=== PATIENT | female | born 1965 | race Caucasian/White ===

== ENCOUNTER → 2020-04-11 | Outpatient (CLI) | payer BC ==
[2020-04-12 13:13] LABS: Adenovirus F 40/41 Not Detected (NOT DETECT); Astrovirus Not Detected (NOT DETECT); Campylobacter Sp Not Detected (NOT DETECT); Cryptosporidium Not Detected (NOT DETECT); Cyclospora Cayetanensis Not Detected (NOT DETECT); E. Coli O157 Not Detected (NOT DETECT); Entamoeba Histolytica Not Detected (NOT DETECT); Enteroaggregative E. coli-EAEC Not Detected (NOT DETECT); Enteropathogenic E. coli-EPEC Not Detected (NOT DETECT); Enterotoxigenic E. coli-ETEC Not Detected (NOT DETECT); Giardia Lamblia Not Detected (NOT DETECT); Norovirus GI/GII Not Detected (NOT DETECT); Plesiomonas Shigelloides Not Detected (NOT DETECT); Rotavirus A Not Detected (NOT DETECT); Salmonella Sp Not Detected (NOT DETECT); Sapovirus Not Detected (NOT DETECT); Shiga Toxin-prod E. coli-STEC Not Detected (NOT DETECT); Shigella/Enteroin E. coli-EIEC Not Detected (NOT DETECT); Vibrio Cholerae Not Detected (NOT DETECT); Vibrio Sp Not Detected (NOT DETECT); Yersinia Enterocolitica Not Detected (NOT DETECT)
== END ==
LOC: LAB SHORT 06:00 → LAB 06:00
PROVIDERS: Nurse Practitioner Family
DX: R19.7 Diarrhea, unspecified (principal)
CPT/HCPCS: 0097U

== ENCOUNTER → 2020-04-11 | Outpatient (CLI) | payer BC ==
[2020-04-12 14:04] LABS: Stool Occult Bld Immuno 1 Negative (NEGATIVE)
== END ==
LOC: LAB SHORT 06:00 → LAB 06:00 → LAB FUT 04-12 08:05
PROVIDERS: Nurse Practitioner Family
DX: R19.7 Diarrhea, unspecified (principal)
CPT/HCPCS: 82274

== ENCOUNTER 2022-03-20 06:26 | Day surgery (SDC) | payer OTHER ==
[~2022-03-20] VITALS: Ht 177.8 cm; Wt 87.5 kg
[2022-03-20] MEDS ORDERED: OMEP20ER (07:00)
--- NOTE | 2022-03-20 09:29 | NUR ---
03/20/22 0929 Sushila Chauhan LATE ENTRY FOR TODAY DURING PROCEDURE EGD TURNED INTO PUSH ENTEROSCOPY
== END 2022-03-20 09:40 | disposition home or self-care (01) ==
LOC: ORSCSDS 06:26
PROVIDERS: Internal Medicine Gastroenterology
PROC: 0DBE8ZX Excision of Large Intestine, Via Natural or Artificial Opening Endoscopic, Diagnostic (ICD-10-PCS; principal; 2022-03-20 08:00)
PROC: 0DB98ZX Excision of Duodenum, Via Natural or Artificial Opening Endoscopic, Diagnostic (ICD-10-PCS; principal; 2022-03-20 08:00)
PROC: 0DBA8ZX Excision of Jejunum, Via Natural or Artificial Opening Endoscopic, Diagnostic (ICD-10-PCS; principal; 2022-03-20 08:00)
PROC: 0D758ZZ Dilation of Esophagus, Via Natural or Artificial Opening Endoscopic (ICD-10-PCS; principal; 2022-03-20 08:00)
PROC: 0DB78ZX Excision of Stomach, Pylorus, Via Natural or Artificial Opening Endoscopic, Diagnostic (ICD-10-PCS; principal; 2022-03-20 08:00)
DX: K92.1 Melena (principal); R10.30 Lower abdominal pain, unspecified; R10.13 Epigastric pain; K29.70 Gastritis, unspecified, without bleeding; K29.80 Duodenitis without bleeding; K22.2 Esophageal obstruction; K64.4 Residual hemorrhoidal skin tags; Z79.899 Other long term (current) drug therapy
CPT/HCPCS: 88305; 88342; C1726; J0330; J0461; J2405; J2704; J7120

== ENCOUNTER 2022-04-16 22:11 | Inpatient (IN) | payer OTHER ==
[~2022-04-16] VITALS: Ht 177.8 cm; Wt 88.5 kg
[~2022-04-16 22:11] MED LIST: OMEP20ER
[2022-04-16 23:15] LABS: BASOPHILS ABSOLUTE AUTO 0.04 K/mm3 (0.00-0.23); BASOPHILS PERCENT AUTO 0 % (0-2); EOSINOPHILS ABSOLUTE AUTO 0.06 K/mm3 (0.00-0.68); EOSINOPHILS PERCENT AUTO 0 % (0-6); Hematocrit 38.1 % (33.0-51.0); Hemoglobin 13.4 g/dL (11.5-16.0); IMMATURE GRAN ABSOLUTE AUTO 0.07 K/mm3 (0.00-0.10); IMMATURE GRAN PERCENT AUTO 1 % (0-1); LYMPHOCYTES ABSOLUTE AUTO 1.79 K/mm3 (0.84-5.20); LYMPHOCYTES PERCENT AUTO 12 % (21-46); MONOCYTES ABSOLUTE AUTO 0.63 K/mm3 (0.16-1.47); MONOCYTES PERCENT AUTO 4 % (4-13); Mean Corpuscular HGB 32.2 pg (26.0-34.0); Mean Corpuscular HGB Conc 35.2 g/dL (31.5-36.5); Mean Corpuscular Volume 92 fL (80-100); Mean Platelet Volume 10.2 fL (9.1-12.4); NEUTROPHILS ABSOLUTE AUTO 12.79 K/mm3 (1.96-9.15); NEUTROPHILS PERCENT AUTO 83 % (41-73); Platelet Count 247 K/mm3 (150-400); RDW Coefficient Variation 11.9 % (11.7-14.2); RDW Standard Deviation 40.2 fL (35.1-46.3); Red Blood Cell Count 4.16 M/mm3 (3.80-5.20); White Blood Cell Count 15.38 K/mm3 (4.00-11.30)
[2022-04-16 23:27] LABS: Albumin, Blood 3.7 g/dL (3.4-5.0); Bilirubin, Total 0.7 mg/dL (0.1-1.0); Bun/Creatinine Ratio 10.4 (12.0-20.0); Calcium, Blood 9.5 mg/dL (8.5-10.1); Creatinine, Blood 0.87 mg/dL (0.40-1.00); Globulin, Blood 3.8 g/dL (2.2-4.0); Potassium, Blood 3.9 mmol/L (3.5-5.5); Total Protein, Blood 7.5 g/dL (6.4-8.2)
[2022-04-17 00:46] LABS: Influenza A, PCR NEGATIVE (NEGATIVE); Influenza B, PCR NEGATIVE (NEGATIVE); Resp Syncytial Virus, PCR NEGATIVE (NEGATIVE); SARS-Cov-2 (COVID-19) PCR, MMC NEGATIVE (NEGATIVE)
[2022-04-17 00:56] LABS: Source, Urine Clean Catch
[2022-04-17 01:02] LABS: Bilirubin, Urine Neg (Neg); Blood, Urine Neg (Neg); Glucose Qualitative, Urine Neg (Neg); Ketones, Urine Neg (Neg); Leukocyte Esterase, Urine Neg (Neg); Nitrite, Urine Neg (Neg); Protein, Urine Neg (Neg); Urobilinogen, Urine NORM (Normal)
[2022-04-17 01:31] LABS: Appearance, Urine Clear (Clear); Color, Urine Yellow (P-Yellow)
--- NOTE | 2022-04-17 11:01 | NUR ---
PT TO DAY SURGERY
--- NOTE | 2022-04-17 17:48 | NUR ---
SHIFT SUMMARY PT S/P LAP APPY. 3 LAP SITES WITH STERI STRIPS TO ABD, CDI. PT DENIES PAIN OR NAUSEA AFTER SURGERY. TOLERATING SOME PO INTAKE BUT HAS BEEN VERY TIRED. PT HAS YET TO GET UP AND VOID. VSS.
--- NOTE | 2022-04-18 06:43 | NUR ---
POD 1 S/P LAP APPY. PT VSS T/O NIGHT. PAIN MGD W/TORADOL W/REP RELIEF. PT MALI PO, DENIED N/V, REP NO FLATUS YET. INCISIONS CDI, STERI STRIPS CDI. PT VOIDING URINE W/O DIFFICULTY. PT IVF AND ABX CONT PER ORDERS.
[2022-04-18] MEDS ORDERED: OXYC5 PO (10:11)
[2022-04-18] MEDS ORDERED: AMOCLA875 PO (10:12)
--- NOTE | 2022-04-18 10:37 | NUR ---
Pt. is awake in bed and welcomes my visit. Pt. is pleasant and anticipating discharge this morning. Pt. verbalizes no significant spiritual concerns, but verbalizes gratitude for the spiritual care visit.
--- NOTE | 2022-04-18 11:25 | NUR ---
DISCHARGE PT POD #1 FOR LAP APPY. 3 LAP SITES WITH STERI STRIPS CDI. PT C/O SOME GAS PAIN AND IS WALKING IN ORDER TO PASS GAS. PATIENT DID NOT WANT TO TAKE OXYCODONE PRESCRIPTION SINCE SHE IS ALLERGIC. OFFERED TO TRY TO FIND A DIFFERENT DRUG FOR PAIN RELIEF AND PT STATED THAT SHE PREFERS TO TAKE TYLENOL. OXYCODONE PRESCRIPTION SHREDDED. PT DC'D HOME WITH FAMILY.
== END 2022-04-18 11:39 | disposition home or self-care (01) | DRG 343 ==
LOC: ER 22:11 → SURS 04-17 02:36 → ERHOLD 04-17 02:36 → SURS 04-17 08:40
PROVIDERS: Student in an Organized Health Care Education/Training Program; Surgery; ADMIT Surgery
PROC: 0DTJ4ZZ Resection of Appendix, Percutaneous Endoscopic Approach (ICD-10-PCS; principal; 2022-04-17 11:30)
DX: K35.80 Unspecified acute appendicitis (principal); K21.9 Gastro-esophageal reflux disease without esophagitis; Z90.49 Acquired absence of other specified parts of digestive tract; Z98.890 Other specified postprocedural states; Z90.710 Acquired absence of both cervix and uterus; Z90.722 Acquired absence of ovaries, bilateral; Z88.5 Allergy status to narcotic agent; Z88.6 Allergy status to analgesic agent; Z88.8 Allergy status to other drugs, medicaments and biological substances; Z79.899 Other long term (current) drug therapy; G43.909 Migraine, unspecified, not intractable, without status migrainosus
CPT/HCPCS: 0241U; 36415; 74177; 80053; 81003; 83605; 83690; 85025; 88304; 93005; 93010; 96365-59; 96375; 96376; 99285-25; J0295; J0696; J1100; J1170; J1885; J2250; J2370; J2405; J2704; J2795; J3010; J7030; J7120; Q9967

== ENCOUNTER 2024-11-30 12:47 | Emergency (ER) | payer OTHER ==
[~2024-11-30] VITALS: Ht 177.8 cm; Wt 88.5 kg
[~2024-11-30 12:47] MED LIST changes: +AMOCLA875 PO; +OXYC5 PO
[2024-11-30 13:29] VITALS: BP 146/89
[2024-11-30 14:32] LABS: Albumin, Blood 4.1 g/dL (3.4-5.0); Bilirubin, Total 0.4 mg/dL (0.1-1.0); Bun/Creatinine Ratio 16.7 (12.0-20.0); Calcium, Blood 9.1 mg/dL (8.5-10.1); Creatinine, Blood 0.84 mg/dL (0.40-1.00); Globulin, Blood 4.1 g/dL (2.2-4.0); Potassium, Blood 4.5 mmol/L (3.5-5.5); Total Protein, Blood 8.2 g/dL (6.4-8.2)
[2024-11-30 15:09] LABS: BASOPHILS ABSOLUTE AUTO 0.07 K/mm3 (0.00-0.23); BASOPHILS PERCENT AUTO 1 % (0-2); EOSINOPHILS ABSOLUTE AUTO 0.12 K/mm3 (0.00-0.68); EOSINOPHILS PERCENT AUTO 2 % (0-6); Hematocrit 32.3 % (33.0-51.0); Hemoglobin 9.9 g/dL (11.5-16.0); IMMATURE GRAN ABSOLUTE AUTO 0.02 K/mm3 (0.00-0.10); IMMATURE GRAN PERCENT AUTO 0 % (0-1); LYMPHOCYTES ABSOLUTE AUTO 1.79 K/mm3 (0.84-5.20); LYMPHOCYTES PERCENT AUTO 23 % (21-46); MONOCYTES ABSOLUTE AUTO 0.47 K/mm3 (0.16-1.47); MONOCYTES PERCENT AUTO 6 % (4-13); Mean Corpuscular HGB 25.1 pg (26.0-34.0); Mean Corpuscular HGB Conc 30.7 g/dL (31.5-36.5); Mean Corpuscular Volume 82 fL (80-100); Mean Platelet Volume 9.4 fL (9.1-12.4); NEUTROPHILS ABSOLUTE AUTO 5.42 K/mm3 (1.96-9.15); NEUTROPHILS PERCENT AUTO 69 % (41-73); Platelet Count 318 K/mm3 (150-400); RDW Coefficient Variation 13.3 % (11.7-14.2); RDW Standard Deviation 39.8 fL (35.1-46.3); Red Blood Cell Count 3.94 M/mm3 (3.80-5.20); White Blood Cell Count 7.89 K/mm3 (4.00-11.30)
[2024-11-30] MEDS ORDERED: Ketorolac Tromethamine 15mg Vial IV ONE (15:15)
== END 2024-11-30 17:40 | disposition home or self-care (01) ==
LOC: ER 12:47
PROVIDERS: Physician Assistant
DX: R10.32 Left lower quadrant pain (principal); K43.9 Ventral hernia without obstruction or gangrene; Z88.5 Allergy status to narcotic agent
CPT/HCPCS: 74177; 80053; 83605; 85025; 96374-59; 99284-25; J1885; Q9967

== ENCOUNTER 2025-01-10 12:26 | Day surgery (SDC) | payer OTHER ==
[~2025-01-10] VITALS: Ht 177.8 cm; Wt 86.9 kg
[2025-01-10] VITALS (11 sets, daily range): BP systolic 138–156; BP diastolic 68–89
[~2025-01-10 12:26] MED LIST changes: +DESVENLAFAXINE100 M3 PO; +MAGNESIUM OXID500 M1 PO; +OMEPRAZOLE MAGN20 MG PO
[2025-01-10] MEDS ORDERED: CeFAZolin Sodium 2,000 MG in NS 100 ML IV SCH (13:50)
[2025-01-10] MEDS ORDERED: Bupivacaine 0.5% HCl 5 MG/ML 30MLVIAL ONE (13:51)
[2025-01-10] MEDS ORDERED: CeFAZolin Sodium 2,000 MG VIAL ONE (14:02)
--- NOTE | 2025-01-10 14:19 | NUR ---
Ambulatory in Day Surgery. History, Chart, Medications and Allergies reviewed before start of procedure. Lungs clear T/O to Auscultation. Patient confirms NPO status and agrees with scheduled surgery. Pre-Op teaching done. Pt verbalizes understanding. Patient States Post-Procedure ride home has been arranged. PT BELONGINGS PLACED UNDERNEATH GURNEY FOR SAFEKEEPING. PT GLASSES TAKEN TO PACU FOR SAFEKEEPING.
[2025-01-10] MEDS ORDERED: FentaNYL Citrate 50 MCG/ML 2 ML Injection ONE (14:23)
[2025-01-10] MEDS ORDERED: HYDROmorphone HCl/Pf 1MG SYR ONE ×2 (14:23→18:20)
[2025-01-10] MEDS ORDERED: Midazolam HCl 1MG / ML 2ML Vial ONE (14:24)
[2025-01-10] MEDS ORDERED: Dexamethasone Sod Phos 10 MG/ML 1ML VIAL ONE (14:41)
[2025-01-10] MEDS ORDERED: Metoclopramide HCl 5MG / ML 2ML Vial ONE (14:41)
[2025-01-10] MEDS ORDERED: Rocuronium Bromide 10 MG/ML 5ML Injection IV ONE (14:41)
[2025-01-10] MEDS ORDERED: Ondansetron HCl 2 MG / ML 2ML Vial ONE (14:41)
[2025-01-10] MEDS ORDERED: Phenylephrine HCl 100 MCG/ML-NS 10MLSYR (1MG/10ML) ONE (16:20)
[2025-01-10] MEDS ORDERED: Sugammadex Sodium 200 MG/2ML SDV (100 MG/ML) ONE (17:23)
[2025-01-10] MEDS ORDERED: Ondansetron HCl 2 MG / ML 2ML Vial IV PRN (17:45)
[2025-01-10] MEDS ORDERED: FentaNYL Citrate 50 MCG/ML 2 ML Injection IV PRN ×2 (17:45)
[2025-01-10] MEDS ORDERED: HYDROmorphone HCl/Pf 1MG SYR IV PRN ×2 (17:45)
[2025-01-10] MEDS ORDERED: HYDROcodone 5-APAP 325 TAB PO PRN (18:45)
--- NOTE | 2025-01-10 19:15 | NUR ---
Ambulatory in Day Surgery Discharge instructions reviewed with patient. Patient verbalizes understanding. Copy given to patient to take home. DISCUSSED IN DETAIL WITH SON AFTER RECIEVING PERMISSION FROM PATIENT. Patient States Post-Procedure ride home has been arranged. Discharged via wheelchair to private car for ride home.
== END 2025-01-10 23:00 | disposition home or self-care (01) ==
LOC: ORSCMMR 12:26 → ORD 14:00 → ORSCMMR 23:00
PROVIDERS: Surgery
PROC: 3E0T3BZ Introduction of Anesthetic Agent into Peripheral Nerves and Plexi, Percutaneous Approach (ICD-10-PCS; principal; 2025-01-10 15:00)
PROC: 0YU84JZ Supplement Left Femoral Region with Synthetic Substitute, Percutaneous Endoscopic Approach (ICD-10-PCS; principal; 2025-01-10 15:00)
PROC: 8E0W4CZ Robotic Assisted Procedure of Trunk Region, Percutaneous Endoscopic Approach (ICD-10-PCS; principal; 2025-01-10 15:00)
PROC: 0WUF4JZ Supplement Abdominal Wall with Synthetic Substitute, Percutaneous Endoscopic Approach (ICD-10-PCS; principal; 2025-01-10 15:00)
PROC: 0YUA4JZ Supplement Bilateral Inguinal Region with Synthetic Substitute, Percutaneous Endoscopic Approach (ICD-10-PCS; principal; 2025-01-10 15:00)
DX: K40.00 Bilateral inguinal hernia, with obstruction, without gangrene, not specified as recurrent (principal); K43.6 Other and unspecified ventral hernia with obstruction, without gangrene; K41.30 Unilateral femoral hernia, with obstruction, without gangrene, not specified as recurrent; K45.0 Other specified abdominal hernia with obstruction, without gangrene; K66.0 Peritoneal adhesions (postprocedural) (postinfection); E11.9 Type 2 diabetes mellitus without complications; F41.9 Anxiety disorder, unspecified; F32.A Depression, unspecified; K21.9 Gastro-esophageal reflux disease without esophagitis; Z79.899 Other long term (current) drug therapy
CPT/HCPCS: 82947; A9270; C1781; J0690; J1100; J1171; J2250; J2371; J2405; J2704; J2765; J3010; J7120

== ENCOUNTER 2025-06-13 17:28 | Observation (INO) | payer OTHER ==
[~2025-06-13] VITALS: Ht 177.8 cm; Wt 68.0 kg
[2025-06-13] MEDS ORDERED: OMEP20ER PO (17:36)
[2025-06-13] MEDS ORDERED: Ketorolac Tromethamine 30mg Vial IV ONE (17:40)
[2025-06-13] MEDS ORDERED: Ondansetron HCl 2 MG / ML 2ML Vial ONE (18:35)
[2025-06-13] MEDS ORDERED: Ondansetron HCl 2 MG / ML 2ML Vial IV ONE (18:50)
[2025-06-13] MEDS ORDERED: Morphine Sulfate 4 MG/1 ML Injection IV ONE (19:30)
[2025-06-13 20:00] LABS: BASOPHILS ABSOLUTE AUTO 0.04 K/mm3 (0.00-0.23); BASOPHILS PERCENT AUTO 0 % (0-2); EOSINOPHILS ABSOLUTE AUTO 0.04 K/mm3 (0.00-0.68); EOSINOPHILS PERCENT AUTO 0 % (0-6); Hematocrit 26.1 % (33.0-51.0); Hemoglobin 7.7 g/dL (11.5-16.0); IMMATURE GRAN ABSOLUTE AUTO 0.34 K/mm3 (0.00-0.10); IMMATURE GRAN PERCENT AUTO 2 % (0-1); LYMPHOCYTES ABSOLUTE AUTO 2.13 K/mm3 (0.84-5.20); LYMPHOCYTES PERCENT AUTO 9 % (21-46); MONOCYTES ABSOLUTE AUTO 1.20 K/mm3 (0.16-1.47); MONOCYTES PERCENT AUTO 5 % (4-13); Mean Corpuscular HGB Conc 29.5 g/dL (31.5-36.5); Mean Corpuscular Volume 79 fL (80-100); NEUTROPHILS ABSOLUTE AUTO 19.39 K/mm3 (1.96-9.15); NEUTROPHILS PERCENT AUTO 84 % (41-73); NRBC ABSOLUTE 0.00 K/mm3 (0.00-0.02); NRBC Auto 0.0 /100 WBC (0.0-0.2); Platelet Count 309 K/mm3 (150-400); RDW Coefficient Variation 14.9 % (11.7-14.2); RDW Standard Deviation 43.2 fL (35.1-46.3)
[2025-06-13 20:53] LABS: Alanine Aminotransfer (ALT/SGP 22.0 U/L (12-78); Albumin, Blood 3.3 g/dL (3.4-5.0); Albumin/Globulin Ratio 1.1 (0.8-1.8); Anion Gap 9.0 mmol/L (3-11); Aspartate Aminotrans (AST/SGOT 16.0 U/L (12-37); Bilirubin, Total 0.2 mg/dL (0.1-1.0); Blood Urea Nitrogen 17.0 mg/dL (8-24); CO2, Blood 25.0 mmol/L (21-32); Calcium, Blood 8.5 mg/dL (8.5-10.1); Chloride, Blood 105.0 mmol/L (98-108); Creatinine, Blood 0.95 mg/dL (0.40-1.00); Globulin, Blood 2.9 g/dL (2.2-4.0); Glucose, Blood 109.0 mg/dL (70-99); Potassium, Blood 3.4 mmol/L (3.5-5.5); Sodium, Blood 136.0 mmol/L (136-145); Total Protein, Blood 6.2 g/dL (6.4-8.2)
[2025-06-13] MEDS ORDERED: FentaNYL Citrate 50 MCG/ML 2 ML Injection IV PRN ×2 (22:25→22:45)
[2025-06-13] MEDS ORDERED: Ketorolac Tromethamine 15mg Vial IV ONE (22:25)
[2025-06-13] MEDS ORDERED: Potassium Chloride 10 Meq Tablet SA PO ONE (22:35)
[2025-06-13] MEDS ORDERED: Ondansetron HCl 2 MG / ML 2ML Vial IV PRN (22:40)
[2025-06-13] MEDS ORDERED: Ketorolac Tromethamine 15mg Vial IV PRN (22:40)
[2025-06-13] MEDS ORDERED: NS 1,000 ML IV SCH (22:45)
[2025-06-13] MEDS ORDERED: FLU VACC TS2025-26(6MOS UP)/PF 45 MCG/0.5 ML SYRINGE IM SCH (22:45)
[2025-06-13 22:56] LABS: IMMATURE RETIC FRACTION 27.4 % (2.3-16.0); RETIC HGB EQUIVALENT 24.1 pg (28.20-36.60); RETICULOCYTE COUNT PERCENT 1.97 % (0.50-2.50)
[2025-06-13 23:48] LABS: Ferritin, Serum 7.0 ng/mL (8-252); Total Iron Binding Capacity 431.0 ug/dL (250-450)
[2025-06-14 00:14] VITALS: BP 138/66
[2025-06-14 00:41] LABS: Hematocrit 28.1 % (33.0-51.0); Hemoglobin 8.2 g/dL (11.5-16.0)
[2025-06-14 04:29] VITALS: BP 135/62
--- NOTE | 2025-06-14 04:41 | NUR ---
SHIFT SUMMARY: PT AOX4, ABLE TO MAKE NEEDS KNOWN AND CALLS APPROPRIATELY. PT WAS NOT ABLE TO TRANSFER SELF ON ARRIVAL FROM ER. PT STATED THAT PAIN IS ONLY ON MOVEMENT, IS OTHERWISE BEARABLE. PLEASANT AND COOPERATIVE IN CARE. PT GIVEN TORADOL AND STATED SHE FELT A LOT BETTER. MILD DISCOMFORT BUT WAS ABLE TO TRANSFER SBA TO THE BATHROOM AND VOIDED. TOLERATING MEDICATIONS WELL. NO ACUTE OVERNIGHT EVENTS. PT IN BED RESTING, BED IN LOWEST POSITION, CALL LIGHT IN REACH. CONTINUING CARE.
[2025-06-14 06:37] LABS: BASOPHILS ABSOLUTE AUTO 0.04 K/mm3 (0.00-0.23); BASOPHILS PERCENT AUTO 0 % (0-2); EOSINOPHILS ABSOLUTE AUTO 0.10 K/mm3 (0.00-0.68); EOSINOPHILS PERCENT AUTO 1 % (0-6); Hematocrit 27.3 % (33.0-51.0); Hemoglobin 8.1 g/dL (11.5-16.0); IMMATURE GRAN ABSOLUTE AUTO 0.08 K/mm3 (0.00-0.10); IMMATURE GRAN PERCENT AUTO 1 % (0-1); LYMPHOCYTES ABSOLUTE AUTO 2.11 K/mm3 (0.84-5.20); LYMPHOCYTES PERCENT AUTO 22 % (21-46); MONOCYTES ABSOLUTE AUTO 0.53 K/mm3 (0.16-1.47); MONOCYTES PERCENT AUTO 6 % (4-13); Mean Corpuscular HGB Conc 29.7 g/dL (31.5-36.5); Mean Corpuscular Volume 79 fL (80-100); NEUTROPHILS ABSOLUTE AUTO 6.78 K/mm3 (1.96-9.15); NEUTROPHILS PERCENT AUTO 70 % (41-73); NRBC ABSOLUTE 0.00 K/mm3 (0.00-0.02); NRBC Auto 0.0 /100 WBC (0.0-0.2); Platelet Count 310 K/mm3 (150-400); RDW Coefficient Variation 14.9 % (11.7-14.2); RDW Standard Deviation 43.0 fL (35.1-46.3)
[2025-06-14 07:04] LABS: Alanine Aminotransfer (ALT/SGP 22.0 U/L (12-78); Albumin, Blood 3.2 g/dL (3.4-5.0); Albumin/Globulin Ratio 1.0 (0.8-1.8); Anion Gap 6.0 mmol/L (3-11); Aspartate Aminotrans (AST/SGOT 17.0 U/L (12-37); Bilirubin, Total 0.4 mg/dL (0.1-1.0); Blood Urea Nitrogen 14.0 mg/dL (8-24); CO2, Blood 28.0 mmol/L (21-32); Calcium, Blood 8.4 mg/dL (8.5-10.1); Chloride, Blood 107.0 mmol/L (98-108); Creatinine, Blood 1.0 mg/dL (0.40-1.00); Globulin, Blood 3.1 g/dL (2.2-4.0); Glucose, Blood 93.0 mg/dL (70-99); Potassium, Blood 4.3 mmol/L (3.5-5.5); Sodium, Blood 137.0 mmol/L (136-145); Thyroid Stimulating Hormone 3.05 uIU/mL (0.360-4.800); Total Protein, Blood 6.3 g/dL (6.4-8.2)
[2025-06-14 08:09] VITALS: BP 142/66
[2025-06-14] MEDS ORDERED: Sod Ferric Gluc Complx/Sucrose 125 MG in NS 100 ML IV SCH (09:31)
[2025-06-14] MEDS ORDERED: Naproxen 250 MG TAB PO PRN (11:20)
[2025-06-14 12:59] LABS: Hematocrit 28.6 % (33.0-51.0); Hemoglobin 8.3 g/dL (11.5-16.0)
--- NOTE | 2025-06-14 14:44 | NUR ---
PHYSICIAN CONTACT CONTACTED PROVIDER TO COMMUNICATE PAIN CONTROL SUCCESS WITH NAPROXEN. PROVIDER STATED OKAY AND SHE WILL INITIATE DISCHARGE FOR THE PT.
[2025-06-14] MEDS ORDERED: CALCITONIN-SAL3.7 M5 (16:33)
[2025-06-14] MEDS ORDERED: NAPROXEN250 M1 PO (16:34)
--- NOTE | 2025-06-14 17:15 | NUR ---
DISCHARGE NOTE PT DISCHARGED TO HOME, PICKED UP BY HER DAUGHTER. IV REMOVED. TELE RETURNED. MEDICATIONS FAXED TO THE PHARMACY OF HER CHOICE. DISCHARGE EDUCATION AND INFORMATION REVIEWED WITH THE PT. PERSONAL BELONGINGS RETURNED.
== END 2025-06-14 16:50 | disposition home or self-care (01) ==
LOC: ER 17:28 → MEDS 17:29
PROVIDERS: Emergency Medicine; ADMIT Internal Medicine
DX: S32.011A Stable burst fracture of first lumbar vertebra, initial encounter for closed fracture (principal); D72.829 Elevated white blood cell count, unspecified; D50.9 Iron deficiency anemia, unspecified; E04.1 Nontoxic single thyroid nodule; E87.6 Hypokalemia; K64.8 Other hemorrhoids; V89.0XXA Person injured in unspecified motor-vehicle accident, nontraffic, initial encounter; Z79.899 Other long term (current) drug therapy; Z88.5 Allergy status to narcotic agent; Z87.11 Personal history of peptic ulcer disease
CPT/HCPCS: 36415; 70450; 72100; 72125; 74177; 80053; 82728; 83540; 83550; 83690; 83880; 84439; 84443; 85014; 85018; 85025; 85045; 97112; 97161; 97165; 99285-25; A9270; G0378; J1885; J2270; J2405; J2916; J3010; J7030; Q9967